=== PATIENT | male | born 1940 | race Caucasian/White ===

== ENCOUNTER 2021-11-21 02:28 | Inpatient (IN) | payer MEDICARE ==
[~2021-11-21] VITALS: Ht 177.8 cm; Wt 54.9 kg
[~2021-11-21 02:28] MED LIST: AMOX TR-K CLV1 EAC4 PO; TUBERSOL5 TUB UNIT ID
[2021-11-21 03:19] LABS: HEMOGLOBIN 11.8 gm/dl (14.0-17.5); RED BLOOD COUNT 4.26 M/UL (4.20-5.50); WHITE BLOOD COUNT 13.2 K/UL (4.5-11.0)
[2021-11-21 03:43] LABS: BUN/CREATININE RATIO 15 (0-10)
[2021-11-21] MEDS ORDERED: ASPIRIN EC81 MG PO (15:00)
[2021-11-21] MEDS ORDERED: ATORVASTATIN CA40 MG PO (15:01)
[2021-11-21] MEDS ORDERED: VITAMIN D325 MCG PO (15:02)
[2021-11-21] MEDS ORDERED: ZINC SULFATE50 MG PO (15:02)
[2021-11-21] MEDS ORDERED: DOCUSATE SODIU100 M1 PO (15:06)
[2021-11-21] MEDS ORDERED: ELIQUIS2.5 MG PO (15:08)
[2021-11-21] MEDS ORDERED: LOPRESSOR100 MG PO (15:08)
[2021-11-21] MEDS ORDERED: BUSPIRONE HCL5 MG PO (15:09)
[2021-11-21] MEDS ORDERED: SENNA8.6 MG PO (15:09)
[2021-11-21] MEDS ORDERED: VITAMIN C1000 MG PO (15:10)
[2021-11-21] MEDS ORDERED: GAS RELIEF80 MG PO (15:11)
[2021-11-21] MEDS ORDERED: CLONAZEPAM1 MG PO (15:11)
[2021-11-21] MEDS ORDERED: IPRAT-ALBUT 0.5-3 ML INH (15:19)
[2021-11-22 03:17] LABS: HEMOGLOBIN 10.1 gm/dl (14.0-17.5)
[2021-11-22 03:21] LABS: RED BLOOD COUNT 3.68 M/UL (4.20-5.50); WHITE BLOOD COUNT 9.4 K/UL (4.5-11.0)
[2021-11-22 03:38] LABS: BUN/CREATININE RATIO 16 (0-10)
[2021-11-23 05:23] LABS: HEMOGLOBIN 10.7 gm/dl (14.0-17.5); RED BLOOD COUNT 3.86 M/UL (4.20-5.50); WHITE BLOOD COUNT 9.3 K/UL (4.5-11.0)
[2021-11-23 05:48] LABS: BUN/CREATININE RATIO 10 (0-10)
[2021-11-23] MEDS ORDERED: QUETIAPINE FUMA25 MG PO (09:12)
[2021-11-23] MEDS ORDERED: LOPRESSOR 50 MG50 MG PO (09:14)
[2021-11-23] MEDS ORDERED: OMNICEF 300 MG300 MG PO (09:14)
[2021-11-23 15:12] LABS: ORGANISM ID Not indicated. (.); SPECIMEN SOURCE Urine (.); STREPTOCOCCUS PNEUMONIAE AG Negative (Negative)
== END 2021-11-23 17:10 | DRG 193 ==
LOC: ER1 02:28 → EDBD 02:28 → CDU 08:11 → MED SURG 4 11:24
PROVIDERS: Family Medicine; Physician Assistant; ADMIT Internal Medicine
DX: J18.9 Pneumonia, unspecified organism (principal); G93.41 Metabolic encephalopathy; J96.21 Acute and chronic respiratory failure with hypoxia; I50.22 Chronic systolic (congestive) heart failure; J84.10 Pulmonary fibrosis, unspecified; L89.152 Pressure ulcer of sacral region, stage 2; F03.90 Unspecified dementia, unspecified severity, without behavioral disturbance, psychotic disturbance, mood disturbance, and anxiety; I25.10 Atherosclerotic heart disease of native coronary artery without angina pectoris; Z20.822 Contact with and (suspected) exposure to COVID-19; Z66 Do not resuscitate; E78.5 Hyperlipidemia, unspecified; K59.00 Constipation, unspecified; I95.9 Hypotension, unspecified; F41.9 Anxiety disorder, unspecified; I11.0 Hypertensive heart disease with heart failure; H91.90 Unspecified hearing loss, unspecified ear; I48.91 Unspecified atrial fibrillation; K21.9 Gastro-esophageal reflux disease without esophagitis; J44.9 Chronic obstructive pulmonary disease, unspecified; E11.9 Type 2 diabetes mellitus without complications; Z79.82 Long term (current) use of aspirin; Z79.01 Long term (current) use of anticoagulants; Z79.899 Other long term (current) drug therapy
CPT/HCPCS: 36415; 36600; 51702; 70450; 71045; 80053; 80202; 81001; 82140; 82550; 82553; 82607; 82803; 82962; 83605; 83735; 83880; 84132; 84439; 84443; 84484; 85025; 85027; 85610; 87040; 87081; 87086; 87278; 87899; 93005; 93308; 93880; 96374; 96375; 99285; J0696; J1160; J1650; J2543; J3370; J3475; J3480; J3486; J7030; J7070; U0002

== ENCOUNTER 2021-12-02 11:19 | Inpatient (IN) | payer OTHER, MEDICARE ==
[~2021-12-02] VITALS: Ht 177.8 cm; Wt 50.8 kg
[~2021-12-02 11:19] MED LIST changes: +ASPIRIN EC81 MG PO; +ATORVASTATIN CA40 MG PO; +BUSPIRONE HCL5 MG PO; +CLONAZEPAM1 MG PO; +DOCUSATE SODIU100 M1 PO; +ELIQUIS2.5 MG PO; +GAS RELIEF80 MG PO; +IPRAT-ALBUT 0.5-3 ML INH; +LOPRESSOR 50 MG50 MG PO; +LOPRESSOR100 MG PO; +OMNICEF 300 MG300 MG PO; +QUETIAPINE FUMA25 MG PO; +SENNA8.6 MG PO; +VITAMIN C1000 MG PO; +VITAMIN D325 MCG PO; +ZINC50 M3 PO
[2021-12-02 12:06] LABS: HEMOGLOBIN 9.1 gm/dl (14.0-17.5); RED BLOOD COUNT 3.33 M/UL (4.20-5.50); WHITE BLOOD COUNT 10.3 K/UL (4.5-11.0)
[2021-12-02] MEDS ORDERED: CEFDINIR300 MG PO (14:10)
[2021-12-02] MEDS ORDERED: CLONAZEPAM1 MG PO (14:11)
[2021-12-02] MEDS ORDERED: QUETIAPINE FUMA25 MG PO (14:14)
[2021-12-02] MEDS ORDERED: ACETAMINOPHEN500 MG PO (14:16)
[2021-12-02] MEDS ORDERED: LACTULOSE10 GM/15 M PO (14:17)
[2021-12-02] MEDS ORDERED: IPRAT-ALBUT 0.5-3 ML INH (14:22)
[2021-12-02 20:54] LABS: BUN/CREATININE RATIO 22 (0-10)
[2021-12-03 02:44] LABS: HEMOGLOBIN 8.9 gm/dl (14.0-17.5); RED BLOOD COUNT 3.23 M/UL (4.20-5.50); WHITE BLOOD COUNT 11.4 K/UL (4.5-11.0)
[2021-12-03 03:09] LABS: BUN/CREATININE RATIO 19 (0-10)
[2021-12-03 14:54] LABS: BUN/CREATININE RATIO 18 (0-10)
[2021-12-04] LABS: BUN/CREATININE RATIO 15 (0-10)
[2021-12-04 04:08] LABS: HEMOGLOBIN 8.7 gm/dl (14.0-17.5); RED BLOOD COUNT 3.09 M/UL (4.20-5.50)
[2021-12-04 04:12] LABS: WHITE BLOOD COUNT 14.3 K/UL (4.5-11.0)
[2021-12-04 04:31] LABS: BUN/CREATININE RATIO 14 (0-10)
[2021-12-05 00:28] LABS: BUN/CREATININE RATIO 12 (0-10)
[2021-12-05 04:23] LABS: BUN/CREATININE RATIO 13 (0-10)
[2021-12-05 04:25] LABS: HEMOGLOBIN 8.1 gm/dl (14.0-17.5); RED BLOOD COUNT 2.88 M/UL (4.20-5.50); WHITE BLOOD COUNT 12.1 K/UL (4.5-11.0)
[2021-12-06 03:06] LABS: HEMOGLOBIN 8.7 gm/dl (14.0-17.5); RED BLOOD COUNT 3.15 M/UL (4.20-5.50); WHITE BLOOD COUNT 9.7 K/UL (4.5-11.0)
[2021-12-06 03:32] LABS: BUN/CREATININE RATIO 11 (0-10)
[2021-12-06] MEDS ORDERED: ROXANOL SOLN20 MG/ML PO ×3 (12:45→12:53)
[2021-12-06] MEDS ORDERED: FLONASE 0.05% N16 GM (12:56)
[2021-12-06] MEDS ORDERED: AMOX TR-K CLV1 EAC4 PO (13:04)
[2021-12-06] MEDS ORDERED: GLUTOSE 1537.5 GM PO (13:04)
[2021-12-07 16:13] LABS: HEMATOCRIT 26.1 % (37.5-51.0)
== END 2021-12-06 18:41 | DRG 637 ==
LOC: ER1 11:19 → M/S 13:22 → CDU 13:22 → M/S 14:38
PROVIDERS: Family Medicine; Internal Medicine; Physician Assistant; Registered Nurse; ADMIT Internal Medicine
DX: E11.649 Type 2 diabetes mellitus with hypoglycemia without coma (principal); G93.41 Metabolic encephalopathy; I50.33 Acute on chronic diastolic (congestive) heart failure; E87.0 Hyperosmolality and hypernatremia; I48.20 Chronic atrial fibrillation, unspecified; E44.0 Moderate protein-calorie malnutrition; E87.6 Hypokalemia; I48.0 Paroxysmal atrial fibrillation; J44.9 Chronic obstructive pulmonary disease, unspecified; I25.10 Atherosclerotic heart disease of native coronary artery without angina pectoris; K21.9 Gastro-esophageal reflux disease without esophagitis; I11.0 Hypertensive heart disease with heart failure; E78.5 Hyperlipidemia, unspecified; F41.9 Anxiety disorder, unspecified; F03.90 Unspecified dementia, unspecified severity, without behavioral disturbance, psychotic disturbance, mood disturbance, and anxiety; D72.10 Eosinophilia, unspecified; E88.09 Other disorders of plasma-protein metabolism, not elsewhere classified; J01.00 Acute maxillary sinusitis, unspecified; Z66 Do not resuscitate; N17.9 Acute kidney failure, unspecified; D64.9 Anemia, unspecified; Z79.01 Long term (current) use of anticoagulants; Z79.82 Long term (current) use of aspirin; Z51.5 Encounter for palliative care
CPT/HCPCS: 36415; 36600; 70450; 71045; 80048; 80053; 81001; 82270; 82550; 82553; 82607; 82728; 82747; 82803; 82962; 83036; 83540; 83550; 83605; 83735; 83921; 84132; 84295; 84484; 85025; 85027; 85045; 92610; 93005; 96374; 96375; 99285; C9113; J2543; J3475; J3480; J7070; U0002